=== PATIENT | male | born 1970 | race Caucasian/White ===

== ENCOUNTER 2022-08-09 01:13 | Emergency (ER) | payer BC ==
[~2022-08-09] VITALS: Ht 182.9 cm; Wt 122.5 kg
[2022-08-09] MEDS ORDERED: KETOROLAC TROMETHAMINE 60 MG INJ IM ONE ×2 (02:00→02:01)
[2022-08-09 02:53] LABS: HEMATOCRIT 47.3 % (36.7-47.1); MEAN CORPUSCULAR HEMOGLOBIN 27.6 uug (23.8-33.4); MEAN CORPUSCULAR VOLUME 84.6 fL (73.0-96.2); PLATELET COUNT (AUTO) 148 K/uL (152-348)
[2022-08-09 03:00] LABS: *BILIRUBIN,URIN NEGATIVE (NEGATIVE); *BLOOD, URINE 3+ (NEGATIVE); *CLARITY,URINE CLEAR (CLEAR); *COLOR,URINE YELLOW (YELLOW); *KETONES,URINE 1+ (NEGATIVE); *UROBILINOGEN,URINE 0.2 E.U./dl (NORMAL); LEUKOCYTE ESTERASE ,URINE NEGATIVE (NEGATIVE); NITRITE, URINE NEGATIVE (NEGATIVE); PH,URINE 5.5 (5.0-8.0); UGLUCOSE NEGATIVE (NEGATIVE)
[2022-08-09 03:26] LABS: BILIRUBIN,DIRECT 0.2 mg/dL (0.0-0.2); BILIRUBIN,TOTAL 0.7 mg/dL (0.2-1.0); CREATININE 1.5 mg/dL (0.6-1.3); POTASSIUM 3.9 mmol/L (3.5-5.1); TOTAL PROTEIN, SERUM 7.5 g/dL (6.4-8.2)
[2022-08-09 03:27] LABS: BACTERIA,URINE MODERATE /HPF (NONE SEEN); SQUAMOUS EPITHELIAL CELL,UR MODERATE /HPF (NONE SEEN); WBC,URINE NONE SEEN /HPF (0-3)
[2022-08-09 03:29] LABS: MUCUS,URINE FEW /LPF (0-FEW)
--- NOTE | 2022-08-09 04:05 | NUR ---
patient walked to the restroom with steady gait, NAD noted.
--- NOTE | 2022-08-09 06:50 | NUR ---
Patient discharged to home in stable condition. Written and verbal after care instructions given. Patient verbalizes understanding of instructions. Stressed follow up or return to ER for worsening s/s. Patient is a/ox4, NAD noted. patient is ambulatory with steady gait.
[2022-08-09 07:43] VITALS: BP 136/78
== END 2022-08-09 07:44 | disposition home or self-care (01) ==
LOC: ER 01:13
DX: N13.2 Hydronephrosis with renal and ureteral calculous obstruction (principal); N28.9 Disorder of kidney and ureter, unspecified; D72.829 Elevated white blood cell count, unspecified
CPT/HCPCS: 99285; 74176; 80076; 80048; 81001; 83690; 85025; 36415; 96372; 87040; J1885; A4663